=== PATIENT | female | born 1960 | race Caucasian/White ===

== ENCOUNTER 2023-09-15 00:02 | Emergency (ER) | payer OTHER, SELFPAY ==
--- NOTE | ~2023-09-15 | CT_ITS ---
EXAMINATION: CT ABDOMEN AND PELVIS WITHOUT CONTRAST CLINICAL INFORMATION: Pain. COMPARISON: None available. TECHNIQUE: Multidetector volumetric imaging was performed from the superior aspect of the liver through the pubic symphysis. Sagittal and coronal reformatted images were obtained on the technologist's workstation. This CT examination was performed using dose optimization techniques as appropriate, variously including the following: *Automated exposure control *Adjustment of mA and/or kV according to patient size (this includes techniques or standardized protocols for targeted exams where dose is matched to indication/reason for exam; i.e. extremities or head) *Use of iterative reconstruction technique DLP: 712 mGy-cm FINDINGS: LUNG BASES: There is scarring at the lung bases. LIVER, GALLBLADDER, AND BILIARY TREE: The liver is of mild diminished attenuation. No focal liver lesions are seen. There is no intrahepatic biliary duct dilatation. The gallbladder is unremarkable with no evidence of radiopaque gallstones, gallbladder wall thickening, or obvious pericholecystic inflammatory changes. PANCREAS: Unremarkable. SPLEEN: Spleen is enlarged measuring up to 16 cm. ADRENAL GLANDS: Bilateral adrenal gland thickening. KIDNEYS AND URETERS: The kidneys are normal in size, shape, and attenuation. No hydronephrosis, hydroureter, or calculi seen. No perinephric stranding. There is a 2.9 cm cyst upper pole left kidney. BLADDER: Unremarkable. GASTROINTESTINAL TRACT: There are diverticula of the transverse, descending and sigmoid colon without diverticulitis. The appendix is visualized and is within normal limits. ABDOMINAL WALL: No significant hernia is appreciated. LYMPH NODES: Normal. VASCULAR: Unremarkable. PELVIC VISCERA: Unremarkable. OSSEOUS STRUCTURES: Unremarkable. CT/CT abdomen pelvis wo IV con IMPRESSION: Diverticula of the transverse, descending and sigmoid colon without diverticulitis. Fatty infiltration of the liver. Splenomegaly. Fleischner guidelines were followed.
[2023-09-15 00:15] VITALS: BP 180/85; PULSE 60; RESP 26; TEMP 36.7; O2SAT 100; BMI 30.7
[2023-09-15 00:22] LABS: Hematocrit 41.4 % (37.0-47.0); Hemoglobin 14.8 g/dl (12.0-16.0); Mean Corpuscular HGB Conc 35.7 g/dl (31.0-35.0); Mean Corpuscular Volume 89.4 fL (80.0-98.0); Mean Platelet Volume 10.3 fL (9.4-12.3); Platelet Count 225 X10*3/uL (160-400); Red Blood Count 4.63 X10*6/uL (4.20-5.50); Red Cell Distribution Width 13.2 % (11.0-16.0)
[2023-09-15 00:37] LABS: Alanine Aminotransferase 29 U/L (0-31); Albumin Level 4.7 g/dL (3.5-5.0); Alkaline Phosphatase 172 U/L (39-117); Anion Gap 14 (12-20); Aspartate Amino Transferase 22 U/L (5-31); Blood Urea Nitrogen 13 mg/dL (9-16); Calcium 10.2 mg/dL (8.4-10.2); Carbon Dioxide 21 mmol/L (22-29); Chloride 111 mmol/L (96-108); Creatinine Clr Calc Pharmacy 83.7; Estimated Glomerular Filt Rate > 60; Glucose Random 176 mg/dL (60-115); Lipase 21 U/L (8-78); Potassium 3.5 mmol/L (3.3-5.1); Sodium 142 mmol/L (135-145); Total Protein 7.9 g/dL (6.5-8.0)
[2023-09-15] MEDS: Ketorolac Tromethamine 30 MG/ML VIAL 15 MG IVPUSH (00:38)
[2023-09-15] MEDS: ondansetron HCL 4 MG/2 ML VIAL IVPUSH (00:38)
[2023-09-15] MEDS: 0.9 % Sodium Chloride 1,000 ML 999 ML IV (00:39)
--- NOTE | 2023-09-15 00:53 | ED_ITS ---
HPI - Abdominal Pain General Chief Complaint: Abdominal Pain Stated Complaint: Kidney Stones Time Seen by Provider: 09/15/23 00:27 Source: patient Mode of arrival: ambulatory History of Present Illness HPI narrative: 62-year-old female without significant past medical history presents with right lower quadrant pain that radiates into her back and started this afternoon is been associated with nausea but no vomiting this has been accompanied by dysuria. Related Data Previous Rx's Medication Instructions Recorded cefdinir 300 mg capsule 300 mg PO BID 7 days #14 caps 09/15/23 Allergies Allergy/AdvReac Type Severity Reaction Status Date / Time acetaminophen [From Vicodin] AdvReac Vomiting Verified 09/15/23 00:18 hydrocodone [From Vicodin] AdvReac Vomiting Verified 09/15/23 00:18 inositol niacinate AdvReac Fainting Verified 09/15/23 00:20 [From Niacin No Flush] niacin [From Niacin No Flush] AdvReac Fainting Verified 09/15/23 00:20 Review of Systems Review of Systems Pertinent positives and negatives as stated in HPI PMFSH Past Medical History Source: nursing notes reviewed Social History Social History Smoked in Last 30 Days: No Advance Directives: No Advance Directives Information Provided: Yes Physical Exam ED Vital Signs: Vital Signs - 24 hr 09/15/23 00:15 Temperature 98.0 F Pulse Rate 60 Respiratory Rate 26 H Blood Pressure 180/85 H Pulse Oximetry 100 Oxygen Delivery Method Room Air BMI result Body Mass Index 30.7 VITAL SIGNS: Reviewed. GENERAL: Well developed, well nourished, in no acute distress. HEAD: Normocephalic/atraumatic EYES: PERRLA, EOMI EARS: Ext canals without abnormality NOSE: Nares patent bilateral OROPHARYNX: no oral lesions noted, posterior pharynx clear NECK: Supple, no adenopathy LUNGS: Normal breath sounds. No adventitious sounds or accessory muscle use. SpO2<100> CARDIOVASCULAR: Regular rate and rhythm without noted murmurs ABDOMEN: Soft, non-tender, non-distended with bowel sounds. MUSCULOSKELETAL: No tenderness, deformities, or effusions noted on gross inspection. EXTREMITIES: No cyanosis, clubbing or edema. SKIN: Inspection of the skin reveals no rashes, but diaphoretic NEUROLOGIC: Alert and oriented x 4. Strength and sensation to light touch were grossly intact x 4. Medical Decision Making Medical Decision Making [facility] Narrative: 0005: 62-year-old female with history and clinical presentation, DDX: Renal colic, appendicitis, UTI, pyelonephritis, less likely felt to be SBO/diverticulitis/cholecystitis. Patient received IV/IV fluids/Zofran/pain medication. I reviewed all investigations and hematologic indices are negative or leukocytosis and there is no anemia or thrombocytopenia. Chemistry indices do not demonstrate any REG or electrolyte/liver enzyme abnormalities other than an elevated alkaline phosphatase but this is likely age related as there is no indication that this would be related with a choledocholithiasis. Urinalysis is grossly positive for both blood and nitrites, will obtain lactic acid/blood cultures/antibiotics. CT scan negative for acute intra-abdominal pathology. My interpretation is that patient has pyelonephritis and has received initial antibiotics and as long as pain is controlled and no longer nauseous and tolerating oral intake she can be discharged. Differential Diagnosis Differential Diagnoses: The differential diagnosis associated with the presentation includes Please see the discussion above Admission/Observation Consideration of admission/observation: Escalation of care including admission/observation considered Please see the discussion above Lab Data [facility] Lab Attestation statement: I reviewed the patient's lab results. Please see the discussion above 09/15/23 00:12 09/15/23 00:12 Labs: Lab Results 09/15/23 09/15/23 Range/Units 00:12 00:47 WBC 10.0 (4.8-10.8) X10*3/uL RBC 4.63 (4.20-5.50) X10*6/uL Hgb 14.8 (12.0-16.0) g/dl Hct 41.4 (37.0-47.0) % MCV 89.4 (80.0-98.0) fL MCH 32.0 (27.0-33.0) pg MCHC 35.7 H (31.0-35.0) g/dl RDW 13.2 (11.0-16.0) % Plt Count 225 (160-400) X10*3/uL MPV 10.3 (9.4-12.3) fL Absolute Nucleated RBC 0.000 (0.0-0.012) X10*3/uL Nucleated RBC % (auto) 0.0 (0.0-0.2) /100WBC Sodium 142 (135-145) mmol/L Potassium 3.5 (3.3-5.1) mmol/L Chloride 111 H (96-108) mmol/L Carbon Dioxide 21 L (22-29) mmol/L Anion Gap 14 (12-20) BUN 13 (9-16) mg/dL Creatinine 0.78 (0.5-1.4) mg/dL Estim Creat Clear Calc 83.7 Estimated GFR > 60 Random Glucose 176 H (60-115) mg/dL Calcium 10.2 (8.4-10.2) mg/dL Total Bilirubin 1.0 (0.0-1.0) mg/dL AST 22 (5-31) U/L ALT 29 (0-31) U/L Alkaline Phosphatase 172 H (39-117) U/L Total Protein 7.9 (6.5-8.0) g/dL Albumin 4.7 (3.5-5.0) g/dL Lipase 21 (8-78) U/L Urine Color Yellow Urine Appearance Turbid Urine pH 5.5 (5.0-9.0) Ur Specific [place] >= 1.030 H (1.005-1.025) Urine Protein 30 (1+) H (Neg-Trace) mg/dL Urine Glucose (UA) Negative (Negative) mg/dL Urine Ketones Trace (Negative) mg/dL Urine Blood Large (3+) H (Negative) Urine Nitrite Positive H (Negative) Ur Leukocyte Esterase Negative (Negative) Urine RBC 3-5 H (0-2) /HPF Urine WBC 0-5 (0-5) /HPF Ur Squamous Epith Cells 0-2 (0-2) /HPF Other Crystals Present Urine Bacteria Trace (None Seen) Hyaline Casts 0-2 (0-2) /LPF Radiology Impression Discussion of test interpretation with radiology: I have reviewed the radiologist's reading. Radiologist Impression: Please see the discussion above Medications Administered Discontinued Medications Generic Name Dose Route Start Last Admin Trade Name Freq PRN Reason Stop Dose Admin Sodium Chloride 1,000 mls @ 999 mls/hr 09/15/23 00:45 09/15/23 00:39 Ns IV 09/15/23 01:45 999 mls/hr .Q1H1M MILLIE Administration Ketorolac Tromethamine 15 mg 09/15/23 00:35 09/15/23 00:38 Ketorolac Tromethamine 30 Mg/Ml Vial IVPUSH 09/15/23 00:36 15 mg ONCE ONE Administration Ondansetron HCl 4 mg 09/15/23 00:35 09/15/23 00:38 Ondansetron Hcl 4 Mg/2 Ml Vial IVPUSH 09/15/23 00:36 4 mg ONCE ONE Administration Critical Care Time Critical Care Time Critical Care Time: Yes Total Critical Care Time: 30 Attestation: I personally attest to this time spent taking care of the patient. Discharge Plan Discharge Clinical Impression: Pyelonephritis Patient Disposition: Home, Self-Care Instructions: Kidney Infection (ED) Additional Instructions: 1. Increase the amount of water intake that you consume and avoid all caffeinated and carbonated beverages. 2. Complete the entire course of antibiotics as prescribed. 3. Please follow-up with primary care doctor on Monday. Return to the ER for any worsening symptoms. Prescriptions: New cefdinir 300 mg capsule 300 mg PO BID 7 Days Qty: 14 0RF Referrals: Sapphire Wilkinson NP [Primary Care Provider] -
--- NOTE | 2023-09-15 00:57 | MHC.EDTECH ---
Bladder Scanned patient per provider's order,patient hade nothing in bladder. Patient was able to void a small amount prior to scan about 50cc. Urine sample collected and sent to lab.RN at bedside
[2023-09-15 00:59] LABS: Appearance Urine Turbid; Color Urine Yellow; Glucose Urine UA Negative (Negative); Leukocyte Esterase Urine Negative (Negative); Nitrite Urine Positive (Negative); PH 5.5 (5.0-9.0); Specific Gravity - Urine >= 1.030 (1.005-1.025); UMIC TRIGGER UACC YES; Urine Blood Large (3+) (Negative); Urine Ketones Trace mg/dL (Negative); Urine Protein 30 (1+) mg/dL (Neg-Trace)
[2023-09-15 01:06] LABS: Bacteria Urine Trace (None Seen); Squamous Epithelial Cell Urine 0-2 /HPF (0-2); UACC Culture Trigger YES; WBC Urine 0-5 /HPF (0-5)
[2023-09-15 01:07] LABS: Hyaline Casts Urine 0-2 /LPF (0-2); Other Crystals Urine Present
[2023-09-15 02:16] VITALS: BP 146/67; PULSE 62; RESP 18; TEMP 36.4; O2SAT 98
--- NOTE | 2023-09-15 02:19 | MHC.EDTECH ---
Hourly rounds and vitals completed, Blood cultures and lactic obtained and sent to lab. Call adrian within reach
[2023-09-15 02:29] LABS: Lactic Acid 1.5 mmol/L (0.5-2.0)
[2023-09-15] MEDS: cefTRIAXone sodium 1 GM in 0.9 % Sodium Chloride 50 ML IV (02:29)
== END 2023-09-15 03:24 | disposition home or self-care (01) ==
PROVIDERS: Student in an Organized Health Care Education/Training Program; Emergency Provider Emergency Medicine Emergency Medical Services; PCP Nurse Practitioner Adult Health
DX: N11.1 Chronic obstructive pyelonephritis (principal); R10.31 Right lower quadrant pain; M54.50 Low back pain, unspecified; R30.0 Dysuria; R11.2 Nausea with vomiting, unspecified; Z79.899 Other long term (current) drug therapy
CPT/HCPCS: 36415; 51798; 74176; 80053; 81001; 83605; 83690; 85027; 87040; 87086; 87147; 87205; 96361; 96365; 96375; 99284; 99285; J0696; J1885; J2405